=== PATIENT | male | born 1960 | race Caucasian/White ===

== ENCOUNTER 2022-05-25 07:00 | Emergency (ER) | payer OTHER, SELFPAY ==
[2022-05-25 07:05] VITALS: BP 118/77; PULSE 105; RESP 16; TEMP 36.8; O2SAT 97; BMI 37.7
--- NOTE | 2022-05-25 07:07 | ECG_ITS ---
Test Reason : afib Blood Pressure : / mmHG Vent. Rate : 111 BPM Atrial Rate : 000 BPM P-R Int : 000 ms QRS Dur : 088 ms QT Int : 354 ms P-R-T Axes : 000 043 017 degrees QTc Int : 481 ms Atrial fibrillation with rapid ventricular response Abnormal ECG No previous ECGs available Referred By: Generic ED Physician Electronically Signed By:DAVID SMITH MD
--- NOTE | 2022-05-25 07:56 | ED.ARRPALP ---
HPI - Arrhythmia/Palpitations General Chief Complaint: Arrhythmia/Palpitations Stated Complaint: sob heart rate 145 dizzy Time Seen by Provider: 05/25/22 07:29 Source: patient History of Present Illness HPI narrative: Patient with a history of atrial fibrillation with ablation at [facility] presents today with palpitations consistent with recurrence of atrial fibrillation. Started this morning spontaneously. He states he has had several episodes of atrial fibrillation since the ablation but they have resolved spontaneously. Positive palpitations. No chest pain. No causative factors of which he is aware. He is on flecainide and metoprolol Related Data Allergies Allergy/AdvReac Type Severity Reaction Status Date / Time No Known Allergies Allergy Verified 05/25/22 07:04 Review of Systems Constitutional: Comments: No recent illness Cardiovascular: Comments: Palpitations without chest pain Respiratory: Comments: No cough or respiratory infection Gastrointestinal: Comments: No nausea vomiting or abdominal pain Neurologic: Comments: No focal weakness PMFSH Social History Social History Smoked in Last 30 Days: No Advance Directives: No Advance Directives Information Provided: No Physical Exam Vital Signs: Vital Signs: Last Vital Signs Temp 97.9 F 05/25/22 10:38 Pulse 68 05/25/22 10:38 Resp 12 05/25/22 10:38 BP 111/67 05/25/22 10:38 Pulse Ox 96 05/25/22 10:38 O2 Del Method 05/25/22 10:38 BMI result Body Mass Index 37.7 Const: Other: Awake and alert. No acute distress Resp: Other: Clear and equal bilaterally without wheezes rales or rhonchi Cardio: Other: Irregularly irregular. At rest between 80 and 100 beats per minute. No murmurs rubs or gallops. Heart rate increased to 130 when he sits up GI: Other: Soft nontender nondistended Skin: Other: Warm pink and dry without rash Neuro: Other: Nonfocal neuro exam Medications Administered Discontinued Medications Generic Name Dose Route Start Last Admin Trade Name Freq PRN Reason Stop Dose Admin Diltiazem HCl 10 mg 05/25/22 07:39 05/25/22 08:17 Diltiazem Hcl 50 Mg/10 Ml Vial IVPUSH 05/25/22 07:40 10 mg STAT STA Administration Medical Decision Making Medical Decision Making MDM Narrative: Patient with recurrence of atrial fibrillation. With RVR with minimal exertion. Will treat with diltiazem. 12:18. Patient with stable labs including troponin. He has been observed for the past several hours and his heart rate has been controlled in the 60s to 80s without significant increase with ambulation. He is still in atrial fibrillation but much less symptomatic. I have been waiting for is sociology research assistant call back so far without a return call. I had discussed strategies with patient including cardioversion today versus waiting to see if he converts spontaneously like he has in the past. At this point will discharge home with close follow-up with his sociology research assistant either yellow or at the [facility]. Patient is comfortable with this plan Final diagnosis atrial fibrillation with RVR. Currently with rate control however Lab Data 05/25/22 08:03 05/25/22 08:03 Labs: Lab Results 05/25/22 05/25/22 05/25/22 Range/Units 08:03 08:03 08:03 WBC 7.0 (4.8-10.8) X10*3/uL RBC 5.30 (4.60-5.80) X10*6/uL Hgb 13.0 L (14.0-18.0) g/dl Hct 41.1 L (42.0-52.0) % MCV 77.5 L (80.0-98.0) fL MCH 24.5 L (27.0-33.0) pg MCHC 31.6 (31.0-36.0) g/dl RDW 13.9 (11.0-16.0) % Plt Count 219 (160-400) X10*3/uL MPV 9.4 (9.4-12.4) fL Immature Gran % (Auto) 0.3 (0.0-0.4) % Neut % (Auto) 56.9 (45-73) % Lymph % (Auto) 27.0 (20-40) % [place] % (Auto) 10.6 (2-11) % Eos % (Auto) 4.6 H (0-4) % Baso % (Auto) 0.6 (0-2) % Lymph # (Auto) 1.9 (1.2-4.9) X10*3/uL [place] # (Auto) 0.7 (0.1-1.2) X10*3/uL Eos # (Auto) 0.3 (0.0-0.4) X10*3/uL Baso # (Auto) 0.0 (0.0-0.2) X10*3/uL Abs Immat Gran (auto) 0.02 (0.00-0.03) X10*3/uL Absolute Neuts (auto) 4.0 (2.0-8.3) x10*3/uL Absolute Nucleated RBC 0.000 (0.0-0.012) X10*3/uL Nucleated RBC % (auto) 0.0 (0.0-0.2) /100WBC Sodium 140 (135-145) mmol/L Potassium 4.3 (3.3-5.1) mmol/L Chloride 110 H (96-108) mmol/L Carbon Dioxide 25 (22-29) mmol/L Anion Gap 9 L (12-20) BUN 17 H (9-16) mg/dL Creatinine 0.98 (0.5-1.4) mg/dL Estim Creat Clear Calc 101.1 Estimated GFR > 60 Random Glucose 126 H (60-115) mg/dL Calcium 8.6 (8.4-10.2) mg/dL Total Bilirubin 0.4 (0.0-1.0) mg/dL AST 17 (5-37) U/L ALT 15 (0-40) U/L Alkaline Phosphatase 70 (39-117) U/L Troponin I High Sens 23.1 (<3.5-35.0) ng/L Total Protein 6.5 (6.5-8.0) g/dL Albumin 3.6 (3.5-5.0) g/dL Urine Color Urine Appearance Urine pH (5.0-9.0) Ur Specific [place] (1.005-1.025) Urine Protein (Neg-Trace) mg/dL Urine Glucose (UA) (Negative) mg/dL Urine Ketones (Negative) mg/dL Urine Blood (Negative) Urine Nitrite (Negative) Ur Leukocyte Esterase (Negative) COVID-19 (MEENA) (Negative) COVID-19 Clin Com 05/25/22 05/25/22 05/25/22 Range/Units 08:12 09:26 09:53 WBC (4.8-10.8) X10*3/uL RBC (4.60-5.80) X10*6/uL Hgb (14.0-18.0) g/dl Hct (42.0-52.0) % MCV (80.0-98.0) fL MCH (27.0-33.0) pg MCHC (31.0-36.0) g/dl RDW (11.0-16.0) % Plt Count (160-400) X10*3/uL MPV (9.4-12.4) fL Immature Gran % (Auto) (0.0-0.4) % Neut % (Auto) (45-73) % Lymph % (Auto) (20-40) % [place] % (Auto) (2-11) % Eos % (Auto) (0-4) % Baso % (Auto) (0-2) % Lymph # (Auto) (1.2-4.9) X10*3/uL [place] # (Auto) (0.1-1.2) X10*3/uL Eos # (Auto) (0.0-0.4) X10*3/uL Baso # (Auto) (0.0-0.2) X10*3/uL Abs Immat Gran (auto) (0.00-0.03) X10*3/uL Absolute Neuts (auto) (2.0-8.3) x10*3/uL Absolute Nucleated RBC (0.0-0.012) X10*3/uL Nucleated RBC % (auto) (0.0-0.2) /100WBC Sodium (135-145) mmol/L Potassium (3.3-5.1) mmol/L Chloride (96-108) mmol/L Carbon Dioxide (22-29) mmol/L Anion Gap (12-20) BUN (9-16) mg/dL Creatinine (0.5-1.4) mg/dL Estim Creat Clear Calc Estimated GFR Random Glucose (60-115) mg/dL Calcium (8.4-10.2) mg/dL Total Bilirubin (0.0-1.0) mg/dL AST (5-37) U/L ALT (0-40) U/L Alkaline Phosphatase (39-117) U/L Troponin I High Sens 15.9 (<3.5-35.0) ng/L Total Protein (6.5-8.0) g/dL Albumin (3.5-5.0) g/dL Urine Color Yellow Urine Appearance Clear Urine pH 7.0 (5.0-9.0) Ur Specific [place] 1.025 (1.005-1.025) Urine Protein Negative (Neg-Trace) mg/dL Urine Glucose (UA) Negative (Negative) mg/dL Urine Ketones Trace (Negative) mg/dL Urine Blood Negative (Negative) Urine Nitrite Negative (Negative) Ur Leukocyte Esterase Negative (Negative) COVID-19 (MEENA) Negative (Negative) COVID-19 Clin Com See Note Critical Care Time Critical Care Time Critical Care Time: Yes Total Critical Care Time: 60 Attestation: Critical care time secondary to cardiac dysrhythmia requiring IV medication and frequent rechecks. Critical care time outside of separately billable procedures Discharge Plan Discharge Clinical Impression: Atrial fibrillation Patient Disposition: Home, Self-Care Instructions: A-fib (Atrial Fibrillation) (ED) Additional Instructions: Return if your symptoms worsen. Call your sociology research assistant today to arrange follow-up this week. Continue your current medications
[2022-05-25 08:10] LABS: MANUAL DIFF FLAG NO
[2022-05-25 08:14] LABS: Basophils Percent Auto 0.6 % (0-2); Eosinophils Absolute Auto 0.3 X10*3/uL (0.0-0.4); Eosinophils Percent Auto 4.6 % (0-4); Hematocrit 41.1 % (42.0-52.0); Imm Gran Abs Auto 0.02 X10*3/uL (0.00-0.03); Imm Gran Pct Auto 0.3 % (0.0-0.4); Lymphocytes Absolute Auto 1.9 X10*3/uL (1.2-4.9); Mean Corpuscular HGB Conc 31.6 g/dl (31.0-36.0); Mean Corpuscular Hemoglobin 24.5 pg (27.0-33.0); Mean Corpuscular Volume 77.5 fL (80.0-98.0); Mean Platelet Volume 9.4 fL (9.4-12.4); Monocytes Absolute Auto 0.7 X10*3/uL (0.1-1.2); Monocytes Percent Auto 10.6 % (2-11); Neutrophils Percent Auto 56.9 % (45-73); Platelet Count 219 X10*3/uL (160-400); Red Cell Distribution Width 13.9 % (11.0-16.0)
[2022-05-25] MEDS: dilTIAZem HCL 50 MG/10 ML VIAL 10 MG IVPUSH (08:17)
[2022-05-25 08:37] LABS: COVID-19 Test Negative (Negative); IDNOW Serial# BCCEAD1C
[2022-05-25 08:40] LABS: Alanine Aminotransferase 15 U/L (0-40); Albumin Level 3.6 g/dL (3.5-5.0); Alkaline Phosphatase 70 U/L (39-117); Anion Gap 9 (12-20); Aspartate Amino Transferase 17 U/L (5-37); Bilirubin Total 0.4 mg/dL (0.0-1.0); Blood Urea Nitrogen 17 mg/dL (9-16); Calcium 8.6 mg/dL (8.4-10.2); Carbon Dioxide 25 mmol/L (22-29); Chloride 110 mmol/L (96-108); Creatinine Clr Calc Pharmacy 101.1; Estimated Glomerular Filt Rate > 60; Glucose Random 126 mg/dL (60-115); Potassium 4.3 mmol/L (3.3-5.1); Sodium 140 mmol/L (135-145); Total Protein 6.5 g/dL (6.5-8.0)
[2022-05-25 08:46] LABS: Troponin-I High Sensitivity 23.1 ng/L (<3.5-35.0)
[2022-05-25 09:58] LABS: Troponin-I High Sensitivity 15.9 ng/L (<3.5-35.0)
[2022-05-25 10:06] LABS: Appearance Urine Clear; Color Urine Yellow; Glucose Urine UA Negative (Negative); Leukocyte Esterase Urine Negative (Negative); Nitrite Urine Negative (Negative); Specific Gravity - Urine 1.025 (1.005-1.025); Urine Blood Negative (Negative); Urine Ketones Trace mg/dL (Negative); Urine Protein Negative (Neg-Trace)
[2022-05-25 10:38] VITALS: BP 111/67; PULSE 68; RESP 12; TEMP 36.6; O2SAT 96
== END 2022-05-25 12:47 | disposition home or self-care (01) ==
PROVIDERS: Emergency Provider Emergency Medicine
DX: I48.91 Unspecified atrial fibrillation (principal); R06.02 Shortness of breath; Z20.822 Contact with and (suspected) exposure to COVID-19
CPT/HCPCS: 36415; 80053; 81003; 84484; 85025; 87635; 93005; 96374; 99284; 99285